=== PATIENT | female | born 1945 | race Asian ===

== ENCOUNTER 2025-02-13 10:02 | Outpatient (CLI) | payer MEDICARE, MEDICAID ==
[~2025-02-13 10:02] MED LIST: DIPH-423 PO; ENAL20TA75 PO; FAMO40TA73 PO; HYDR12.522 PO; OMEP40CA21 PO; RES15C PO; SIMV5TAB58 PO; TETR15DR84 OP; TRAM50TA2 PO
--- NOTE | 2025-02-13 11:35 | RADIOLOGY REPORT ---
INDICATION: ABDOMINAL PAIN TECHNIQUE: Multiple real-time sonographic images of the kidneys and urinary bladder were obtained. COMPARISON: None FINDINGS: The right kidney measures 10.4 cm in length. The right renal echotexture, contour and cortical thick ness are within normal limits. No hydronephrosis or large masses/calculi are seen. The left kidney measures 10.1 cm in length. The left renal echotexture, contour, and cortical thickne ss are within normal limits. No hydronephrosis or large masses/calculi are seen. No echogenic intraluminal masses are seen in the bladder. No urinary bladder wall abnormality. Right ureteral jet was visualized. Cystic structure posterior to the Urinary bladder with a low resistance waveform. This structure kristen sures 9.6 x 8.2 x 7.8 cm. IMPRESSION: 1. No hydronephrosis. 2. Cystic structure identified posterior to the bladder measuring 9.6 cm which may reflect a cystic o varian lesion. Dedicated pelvic ultrasound may be obtained for further evaluation.
== END 2025-02-13 23:59 | disposition home or self-care (01) ==
LOC: MERGE 10:02 → RAD 10:02
PROVIDERS: ATTEND Nurse Practitioner
DX: R10.9 Unspecified abdominal pain (principal); N32.89 Other specified disorders of bladder
CPT/HCPCS: 76770